=== PATIENT | female | born 1940 | race Caucasian/White ===

== ENCOUNTER 2017-07-08 08:52 | Day surgery (SDC) | payer MEDICARE, BC ==
[2017-07-08] MEDS ORDERED: Dexamethasone 4 MG/ML SDV IV ONE (08:53)
[2017-07-08] MEDS ORDERED: Midazolam 1 MG/ML 2 ML SDV IV ONE (08:53)
[2017-07-08] MEDS ORDERED: Cataract Ophth Solution EYELF ONE (09:30)
[2017-07-08] MEDS ORDERED: Sodium Chloride 0.9% 10 ML Syringe FLUSH PRN (09:30)
[2017-07-08] MEDS ORDERED: Acetaminophen 325 MG Tab PO PRN (09:30)
[2017-07-08] MEDS ORDERED: Moxifloxacin 0.5% Ophth Soln 3 ML Bottle EYELF ONE (09:30)
[2017-07-08] MEDS ORDERED: Povidone-Iodine 5% Sterile Ophth Soln 30 ML Bottle EYELF ONE ×2 (09:30→10:48)
[2017-07-08] MEDS ORDERED: Proparacaine 0.5% Ophth Soln 15 ML Bottle EYELF ONE (09:30)
[2017-07-08] MEDS ORDERED: Phenylephrine 10% Ophth Soln 5 ML Bot EYELF PRN (09:30)
[2017-07-08] MEDS ORDERED: Timolol Maleate 0.5% Ophth Soln 5 ML Bottle EYELF ONE (09:30)
[2017-07-08] MEDS ORDERED: Phenylephrine 10% Ophth Soln 5 ML Bot EYELF ONE (09:30)
[2017-07-08] MEDS ORDERED: Ondansetron 4 MG/2 ML SDV IVPUSH PRN (09:30)
--- NOTE | 2017-07-08 10:23 | PCM.SN ---
- Free Text/Narrative Note: 07/08/17 1012 preop patients history and physical reviewed along with allergies and medications no history of complications with past anesthesia heart regular rhythm history of hypertension lungs clear history of dyslipidemia hypothyroidism GERD sleep apnea npo 8 hrs asa 2 mallampati 3 plan topical with iv sedation this along with risks goals alternatives explained to patient and accepted
[2017-07-08] MEDS ORDERED: Midazolam 1 MG/ML 2 ML SDV ONE (10:27)
[2017-07-08] MEDS ORDERED: Dexamethasone 4 MG/ML SDV ONE (10:28)
[2017-07-08] MEDS ORDERED: Lidocaine 1% 30 ML SDV ONE (10:47)
[2017-07-08] MEDS ORDERED: Chondroitin Sulfate/Hyaluronate Sodium Ophth Inj 0.75 ML Syringe EYELF ONE (10:47)
[2017-07-08] MEDS ORDERED: Vancomycin 500 MG SDV EYELF ONE (10:47)
[2017-07-08] MEDS ORDERED: Tetracaine HCl/PF 0.5% 4 ML Bottle EYELF ONE (10:47)
[2017-07-08] MEDS ORDERED: Balanced Salt Solution Ophth Irrig 500 ML Bottle IOCULAR ONE (10:47)
[2017-07-08] MEDS ORDERED: Apraclonidine 0.5% Ophth Soln 5 ML Bot EYELF ONE (10:48)
[2017-07-08] MEDS ORDERED: Diclofenac Sodium 0.1% Ophth Soln 5 ML Bottle EYELF ONE (10:49)
[2017-07-08] MEDS ORDERED: Dexamethasone/Neomycin/Polymyxin B Ophth Oint 3.5 GM Tube EYELF ONE (10:49)
--- NOTE | 2017-07-08 11:18 | PCM.SN ---
- Free Text/Narrative Note: 07/08/17 1120 postop patient recovered well from iv sedation no apparent complications with anesthesia
--- NOTE | 2017-07-08 12:09 | OR ---
DATE: 07/08/2017 PREOPERATIVE DIAGNOSIS: Cataract, left eye. POSTOPERATIVE DIAGNOSIS: Cataract, left eye. PROCEDURE: Extracapsular cataract extraction with intraocular lens implant, left eye. ANESTHESIA: Topical/local MAC. COMPLICATIONS: None. INDICATION: Mrs. Lo was seen in the clinic. She has complained of difficulty reading, difficulty in crossword puzzles, and difficulty with bright lights and glare. Clinical examination reveals visually significant cataract and astigmatism. I explained options. I offered cataract surgery and I explained risks including but not limited to, infection, retinal detachment, loss of vision, need for additional surgery, and risks associated with anesthesia. We discussed implant options. She has requested a Toric implant. She is motivated to reduced dependence on spectacle correction. She understands that she may still require spectacle correction for some tasks. She voiced an understanding with respect to risks and limitations and wished to proceed. OPERATIVE DESCRIPTION: After informed consent was obtained and the risks, benefits, and alternatives were explained, the patient was brought to the operative suite and topical anesthesia was administered. The patient was then prepped and draped in the sterile fashion and attention was placed on the left eye. A sterile lid speculum was placed into the left eye to allow operative exposure. A full-thickness paracentesis was made in the temporal portion of the operative eye. Preservative-free lidocaine 0.1 mL was injected into the anterior chamber followed by viscoelastic. A full-thickness corneal incision was then made into the anterior chamber. A bent needle cystotome was used to create a small adriano in the anterior capsule. The capsulorrhexis forceps was then used to create a 360-degree curvilinear capsulorrhexis. The nucleus was then removed using a phacoemulsification handpiece and the remaining cortical material was then removed with irrigation and aspiration handpiece. Following removal of the cortical material, the capsular bag was then inspected and noted to be free of any holes or tears. Viscoelastic was then injected into the capsular bag and the intraocular lens was inserted into the capsular bag implant was oriented to summer camp counselor preoperative corneal carrington made with the patient in the upright position. The viscoelastic material was then removed from both the anterior and posterior chambers and from behind the IOL. The lens and capsular bag were then reinspected. The IOL was well centered and the capsular bag intact. The wound and paracentesis sites were inspected and hydrated with balanced saline solution. Both were found to be self-sealing. The intraocular pressure was assessed digitally and found to be within normal range. A good red reflex was noted at the completion of the procedure. No complications occurred during the operation. At the completion of the procedure, Maxitrol, Voltaren, and Iopidine drops were placed into the operative eye. A sterile eye shield was placed over the operative eye and the patient was transported to the postoperative recovery area having tolerated the procedure well. Postoperative instructions were given along with a postoperative appointment. The patient was advised to call with any questions or concerns. [facility] /[id number]
[2017-07-08 14:30] VITALS: BP 127/72
== END 2017-07-08 12:00 | disposition home or self-care (01) ==
LOC: DL.SDS 08:52
PROVIDERS: ATTEND Ophthalmology
DX: H26.9 Unspecified cataract (principal); E11.9 Type 2 diabetes mellitus without complications; E78.5 Hyperlipidemia, unspecified; I10 Essential (primary) hypertension; K21.9 Gastro-esophageal reflux disease without esophagitis; G47.30 Sleep apnea, unspecified; Z90.49 Acquired absence of other specified parts of digestive tract; Z98.890 Other specified postprocedural states
CPT/HCPCS: 00142; 66984; A9270; J3370; J7050; J1100; J2250; V2787

== ENCOUNTER 2017-07-15 08:27 | Day surgery (SDC) | payer MEDICARE, BC ==
[~2017-07-15 08:27] MED LIST: Moxifloxacin 0.5% Ophth Soln 3 ML Bottle EYERT ONE; Phenylephrine 10% Ophth Soln 5 ML Bot EYERT ONE; Povidone-Iodine 5% Sterile Ophth Soln 30 ML Bottle EYERT ONE; Proparacaine 0.5% Ophth Soln 15 ML Bottle EYERT ONE; Sodium Chloride 0.9% 10 ML Syringe FLUSH PRN; Timolol Maleate 0.5% Ophth Soln 5 ML Bottle EYERT ONE
[2017-07-15] MEDS ORDERED: Dexamethasone 4 MG/ML SDV IV ONE (08:28)
[2017-07-15] MEDS ORDERED: Sodium Chloride 0.9% 10 ML Syringe IV ONE (08:28)
[2017-07-15] MEDS ORDERED: Midazolam 1 MG/ML 2 ML SDV IV ONE (08:28)
[2017-07-15] MEDS: Dilation Soln 1 EA EACH EYERT ONE ×2 (08:52→08:53)
[2017-07-15] MEDS ORDERED: Dexamethasone 4 MG/ML SDV ONE (09:58)
[2017-07-15] MEDS ORDERED: Midazolam 1 MG/ML 2 ML SDV ONE (09:58)
[2017-07-15] MEDS ORDERED: Povidone-Iodine 5% Sterile Ophth Soln 30 ML Bottle EYERT ONE (10:08)
[2017-07-15] MEDS ORDERED: Lidocaine 1% 30 ML SDV ONE (10:08)
[2017-07-15] MEDS ORDERED: Tetracaine HCl/PF 0.5% 4 ML Bottle EYERT ONE (10:08)
[2017-07-15] MEDS ORDERED: Apraclonidine 0.5% Ophth Soln 5 ML Bot EYERT ONE (10:09)
[2017-07-15] MEDS ORDERED: Diclofenac Sodium 0.1% Ophth Soln 5 ML Bottle EYERT ONE (10:09)
[2017-07-15] MEDS ORDERED: Vancomycin 500 MG SDV EYERT ONE (10:09)
[2017-07-15] MEDS ORDERED: Dexamethasone/Neomycin/Polymyxin B Ophth Oint 3.5 GM Tube EYERT ONE (10:09)
[2017-07-15] MEDS ORDERED: Chondroitin Sulfate/Hyaluronate Sodium Ophth Inj 0.75 ML Syringe EYERT ONE (10:10)
[2017-07-15] MEDS ORDERED: Balanced Salt Solution Ophth Irrig 500 ML Bottle IOCULAR ONE (10:10)
[2017-07-15 11:09] VITALS: BP 178/74
--- NOTE | 2017-07-15 11:12 | OR ---
DATE: 07/15/2017 PREOPERATIVE DIAGNOSIS: Cataract, right eye. POSTOPERATIVE DIAGNOSIS: Cataract, right eye. PROCEDURE: Extracapsular cataract extraction with intraocular lens implant, right eye. ANESTHESIA: Topical/local MAC. COMPLICATIONS: None. INDICATION: Mrs. Lo was seen in the clinic. She has complained of a slow progressive decrease in vision. Clinical examination reveals visually significant cataract and astigmatism. I offered cataract surgery and I explained risks including but not limited to, infection, retinal detachment, loss of vision, need for additional surgery, and risks associated with anesthesia. We discussed implant options. She has requested a toric implant. She understands that she may require glasses for some activities following surgery. She voiced an understanding with respect to risks including the potential for vision loss and wished to proceed. OPERATIVE DESCRIPTION: After informed consent was obtained and the risks, benefits, and alternatives were explained, the patient was brought to the operative suite and topical anesthesia was administered. The patient was then prepped and draped in the sterile fashion and attention was placed on the right eye. A sterile lid speculum was placed into the right eye to allow operative exposure. A full-thickness paracentesis was made in the temporal portion of the operative eye. Preservative-free lidocaine 0.1 mL was injected into the anterior chamber followed by viscoelastic. A full-thickness corneal incision was then made into the anterior chamber. A bent needle cystotome was used to create a small adriano in the anterior capsule. The capsulorrhexis forceps was then used to create a 360-degree curvilinear capsulorrhexis. The nucleus was then removed using a phacoemulsification handpiece and the remaining cortical material was then removed with irrigation and aspiration handpiece. Following removal of the cortical material, the capsular bag was then inspected and noted to be free of any holes or tears. Viscoelastic was then injected into the capsular bag and the intraocular lens was inserted into the capsular bag. The implant was oriented to correspond with preoperative corneal carrington made with the patient in the upright position. The viscoelastic material was then removed from both the anterior and posterior chambers and from behind the IOL. The lens and capsular bag were then reinspected. The IOL was well centered and the capsular bag intact. The wound and paracentesis sites were inspected and hydrated with balanced saline solution. Both were found to be self-sealing. The intraocular pressure was assessed digitally and found to be within normal range. A good red reflex was noted at the completion of the procedure. No complications occurred during the operation. At the completion of the procedure, Maxitrol, Voltaren, and Iopidine drops were placed into the operative eye. A sterile eye shield was placed over the operative eye and the patient was transported to the postoperative recovery area having tolerated the procedure well. Postoperative instructions were given along with a postoperative appointment. The patient was advised to call with any questions or concerns. No complications occurred. [facility] /[id number]
== END 2017-07-15 11:20 | disposition home or self-care (01) ==
LOC: DL.SDS 08:27
PROVIDERS: ATTEND Ophthalmology
DX: H26.9 Unspecified cataract (principal); I10 Essential (primary) hypertension; G47.30 Sleep apnea, unspecified; F32.9 Major depressive disorder, single episode, unspecified; E78.5 Hyperlipidemia, unspecified; K21.9 Gastro-esophageal reflux disease without esophagitis; E11.9 Type 2 diabetes mellitus without complications; E66.9 Obesity, unspecified; Z88.8 Allergy status to other drugs, medicaments and biological substances; Z90.49 Acquired absence of other specified parts of digestive tract; Z98.890 Other specified postprocedural states; Z79.899 Other long term (current) drug therapy; Z68.26 Body mass index [BMI] 26.0-26.9, adult
CPT/HCPCS: 66984; A9270; J1100; J2250; J3370; J7050; V2787; 00142

== ENCOUNTER 2018-05-07 09:54 | Emergency (ER) | payer MEDICARE, BC ==
[2018-05-07] MEDS ORDERED: Ondansetron 4 MG/2 ML SDV IV ONE (10:34)
--- NOTE | 2018-05-07 10:40 | EDM.PDOC ---
ED HPI GENERAL MEDICAL PROBLEM - General Chief Complaint: Gastrointestinal Problem Stated Complaint: FLU LIKE SYMPTOMS [id number] Time Seen by Provider: 05/07/18 10:25 Source of Information: Reports: Patient History Limitations: Reports: No Limitations - History of Present Illness INITIAL COMMENTS - FREE TEXT/NARRATIVE: This 77 yo female patient reports to the ED with a 4 day history of nausea/ vomiting/diarrhea. The patient reports she has been attempting to drink small amounts of food and fluid, but after eating or drinking the patient gets nauseated and vomits. The patient reports she has take a dose of Imodium daily, but continues to have diarrhea. The patient reports that she called the [facility] yesterday and was advised to come to the ED. The patient reports some abdominal cramping when she needs to have a bowel movement. Onset Date: 05/03/18 Duration: Constant, Getting Worse Location: Reports: Abdomen, Other Quality: Reports: Other (cramping) Severity: Moderate Improves with: Reports: None Worsens with: Reports: None Context: Reports: Other Associated Symptoms: Reports: Nausea/Vomiting, Weakness (generalized ), Other ( diarrhea) Treatments CLEAN ENERGY POLICY ANALYST: Reports: Other Medication(s) (Imodium) Abdomen Pain Score (Numeric/FACES): 5 - Related Data Allergies Allergy/AdvReac Type Severity Reaction Status Date / Time pseudoephedrine Allergy Tachycardia Verified 07/15/17 08:37 Home Meds: Home Meds Aspirin [Halfprin] 81 mg PO DAILY 07/07/17 [History] Atenolol [Tenormin] 50 mg PO DAILY 07/07/17 [History] Calcium Carbonate/Vitamin D3 [Calcium 600 + Vit D Tablet] 1 each PO BID [History] Citalopram Hydrobromide [Celexa] 20 mg PO DAILY 07/07/17 [History] Enalapril Maleate [Vasotec] 20 mg PO BID 07/07/17 [History] Glimepiride [Amaryl] 1 mg PO BID 07/07/17 [History] Hydrochlorothiazide 25 mg PO DAILY 07/07/17 [History] Isosorbide Mononitrate [Imdur] 90 mg PO DAILY 07/07/17 [History] Levothyroxine [Synthroid] 50 mcg PO ACBREAKFAST 07/07/17 [History] Multivit-Min/FA/Lycopene/Lut [Centrum Silver Tablet] 1 each PO DAILY 07/07/17 [ History] Oxybutynin Chloride [Ditropan Xl] 10 mg PO DAILY 07/07/17 [History] atorvaSTATin [Lipitor] 40 mg PO BEDTIME 07/07/17 [History] metFORMIN HCl [Metformin HCl] 1,000 mg PO BID 07/07/17 [History] levETIRAcetam [Keppra] 500 mg PO BID 05/07/18 [History] Past Medical History HEENT History: Reports: Cataract, Impaired Vision Cardiovascular History: Reports: High Cholesterol, Hypertension, Other (See Below) Other Cardiovascular History: CARDIAC STRESS TEST; PALPITATIONS Respiratory History: Reports: Sleep Apnea Gastrointestinal History: Reports: GERD 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 History: Reports: Other (See Below) Other 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 History: 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: Reports: , Spontaneous Musculoskeletal History: Reports: Arthritis Neurological History: Reports: None, Seizure Psychiatric History: Reports: Depression Endocrine/Metabolic History: Reports: Diabetes, Type II, Other (See Below) Other Endocrine/Metabolic History: METABOLIC SYNDROME Hematologic History: Reports: None Immunologic History: Reports: None Oncologic (Cancer) History: Reports: None Dermatologic History: Reports: Psoriasis - Infectious Disease History Infectious Disease History: Reports: Chicken Pox, Measles - Past Surgical History Head Surgeries/Procedures: Reports: None HEENT Surgical History: Reports: Cataract Surgery Cardiovascular Surgical History: Reports: Other (See Below) Other Cardiovascular Surgeries/Procedures: DOPPLER ECHOCARDIOGRAPHY Respiratory Surgical History: Reports: None GI Surgical History: Reports: Appendectomy, Cholecystectomy, Colonoscopy, EGD Female Surgical History: Reports: Breast Biopsy Endocrine Surgical History: Reports: None Neurological Surgical History: Reports: None Musculoskeletal Surgical History: Reports: None Oncologic Surgical History: Reports: Biopsy of Breast, Lumpectomy, Other (See Below) Other Oncologic Surgeries/Procedures: RIGHT BREAST Social & Family History - Family History Family Medical History: Noncontributory - Tobacco Use Smoking Status *Q: Never Smoker - Caffeine Use Caffeine Use: Reports: Coffee, Soda, Tea - Recreational Drug Use Recreational Drug Use: No ED ROS GENERAL - Review of Systems Review Of Systems: ROS reveals no pertinent complaints other than HPI. ED EXAM, GI/ABD - Physical Exam Exam: See Below Exam Limited By: No Limitations General Appearance: Alert, WD/WN, Mild Distress Eyes: Bilateral: Normal Appearance, EOMI Ears: Normal External Exam, Normal Canal, Hearing Grossly Normal, Normal TMs Nose: Normal Inspection, Normal Mucosa, No Blood Throat/Mouth: Normal Inspection, Normal Lips, Normal Teeth, Normal Gums, Normal Oropharynx, Normal Voice, No Airway Compromise Head: Atraumatic, Normocephalic Neck: Normal Inspection, Supple, Non-Tender, Full Range of Motion Respiratory/Chest: No Respiratory Distress, Lungs Clear, Normal Breath Sounds, No Accessory Muscle Use, Chest Non-Tender Cardiovascular: Normal Peripheral Pulses, Regular Rate, Rhythm, No Edema, No Gallop, No JVD, No Murmur, No Rub GI/Abdominal Exam: Normal Bowel Sounds, Soft, No Organomegaly, No Distention, No Abnormal Bruit, No Mass, Pelvis Stable, Tender (mild diffuse tenderness) (Female) Exam: Deferred Rectal (Female) Exam: Deferred Extremities: Normal Inspection, Normal Range of Motion, Non-Tender, Normal Capillary Refill, No Pedal Edema Neurological: Alert, Oriented, CN II-XII Intact, Normal Cognition, Normal Gait Psychiatric: Normal Affect, Normal Mood Skin Exam: Warm, Dry, Intact, Normal Color, No Rash Lymphatic: No Adenopathy Course - Vital Signs Last Recorded V/S: Last Vital Signs Temp 36.3 C 05/07/18 12:15 Pulse 65 05/07/18 12:15 Resp 17 05/07/18 12:15 BP 130/56 L 05/07/18 12:15 Pulse Ox 99 05/07/18 12:15 - Orders/Labs/Meds Orders: Active Orders 24 hr Category Date Time Status UA W/MICROSCOPIC [URIN] Stat Lab 05/07/18 13:44 Ordered Sodium Chloride 0.9% [Normal Saline] 1,000 ml Med 05/07/18 10:45 Active IV ASDIRECTED Sodium Chloride 0.9% [Normal Saline] 1,000 ml Med 05/07/18 12:45 Active IV ASDIRECTED Medication Orders Sodium Chloride (Normal Saline) 1,000 mls @ 999 mls/hr IV ASDIRECTED DOREEN Last Admin: 05/07/18 10:49 Dose: 999 mls/hr Sodium Chloride (Normal Saline) 1,000 mls @ 999 mls/hr IV ASDIRECTED DOREEN Last Admin: 07/20/18 12:36 Dose: 999 mls/hr Labs: Laboratory Tests 05/07/18 05/07/18 05/07/18 Range/Units 10:40 10:40 10:40 WBC 4.5 L (5.0-10.0) 10^3/uL RBC 4.09 L (4.2-5.4) 10^6/uL Hgb 11.7 L (12.0-16.0) g/dL Hct 34.8 L (37.0-47.0) % MCV 85.1 (80-100) fL MCH 28.6 (27.0-34.0) pg MCHC 33.6 (33.0-35.0) g/dL Plt Count 197 (150-450) 10^3/uL Neut % (Auto) 49.4 (42.2-75.2) % Lymph % (Auto) 21.2 (20.5-50.1) % [place] % (Auto) 19.9 H (2-8) % Eos % (Auto) 9.1 H (1.0-3.0) % Baso % (Auto) 0.4 (0.0-1.0) % Sodium 128 L (135-145) mmol/L Potassium 2.9 L (3.6-5.0) mmol/L Chloride 94 L (101-111) mmol/L Carbon Dioxide 18.0 L (21.0-31.0) mmol/L Anion Gap 18.9 BUN 58 H (7-18) mg/dL Creatinine 2.1 H (0.6-1.3) mg/dL Est Cr Clr Drug Dosing 23.35 mL/min Estimated GFR (MDRD) 23 BUN/Creatinine Ratio 27.61 Glucose 147 H (74-105) mg/dL Calcium 8.9 (8.4-10.2) mg/dl Magnesium 1.5 L (1.8-2.5) mg/dL Total Bilirubin 0.9 (0.2-1.0) mg/dL AST 21 (10-42) IU/L ALT 18 (10-60) IU/L Alkaline Phosphatase 41 L (42-121) IU/L Total Protein 7.8 (6.7-8.2) g/dl Albumin 4.1 (3.2-5.5) g/dl Globulin 3.7 Albumin/Globulin Ratio 1.11 Amylase 25 L (28-100) U/L Lipase 28 (22-51) U/L Urine Color (YELLOW) Urine Appearance (CLEAR) Urine pH (5.0-9.0) Ur Specific [place] (1.005-1.030) Urine Protein (NEGATIVE) Urine Glucose (UA) (NEGATIVE) Urine Ketones (NEGATIVE) Urine Occult Blood (NEGATIVE) Urine Nitrite (NEGATIVE) Urine Bilirubin (NEGATIVE) Urine Urobilinogen (0.2-1.0) mg/dL Ur Leukocyte Esterase (NEGATIVE) Urine RBC /HPF Urine WBC (0-5/HPF) /HPF Ur Epithelial Cells /HPF Urine Bacteria (0-FEW/HPF) /HPF 05/07/18 Range/Units 13:44 WBC (5.0-10.0) 10^3/uL RBC (4.2-5.4) 10^6/uL Hgb (12.0-16.0) g/dL Hct (37.0-47.0) % MCV (80-100) fL MCH (27.0-34.0) pg MCHC (33.0-35.0) g/dL Plt Count (150-450) 10^3/uL Neut % (Auto) (42.2-75.2) % Lymph % (Auto) (20.5-50.1) % [place] % (Auto) (2-8) % Eos % (Auto) (1.0-3.0) % Baso % (Auto) (0.0-1.0) % Sodium (135-145) mmol/L Potassium (3.6-5.0) mmol/L Chloride (101-111) mmol/L Carbon Dioxide (21.0-31.0) mmol/L Anion Gap BUN (7-18) mg/dL Creatinine (0.6-1.3) mg/dL Est Cr Clr Drug Dosing mL/min Estimated GFR (MDRD) BUN/Creatinine Ratio Glucose (74-105) mg/dL Calcium (8.4-10.2) mg/dl Magnesium (1.8-2.5) mg/dL Total Bilirubin (0.2-1.0) mg/dL AST (10-42) IU/L ALT (10-60) IU/L Alkaline Phosphatase (42-121) IU/L Total Protein (6.7-8.2) g/dl Albumin (3.2-5.5) g/dl Globulin Albumin/Globulin Ratio Amylase (28-100) U/L Lipase (22-51) U/L Urine Color Yellow (YELLOW) Urine Appearance Clear (CLEAR) Urine pH 5.0 (5.0-9.0) Ur Specific [place] 1.010 (1.005-1.030) Urine Protein Negative (NEGATIVE) Urine Glucose (UA) Negative (NEGATIVE) Urine Ketones Negative (NEGATIVE) Urine Occult Blood Small H (NEGATIVE) Urine Nitrite Positive H (NEGATIVE) Urine Bilirubin Negative (NEGATIVE) Urine Urobilinogen 0.2 (0.2-1.0) mg/dL Ur Leukocyte Esterase Negative (NEGATIVE) Urine RBC 0-5 /HPF Urine WBC 0-5 (0-5/HPF) /HPF Ur Epithelial Cells Occasional /HPF Urine Bacteria Many H (0-FEW/HPF) /HPF Meds: Medications Generic Name Dose Route Start Last Admin Trade Name Freq PRN Reason Stop Dose Admin Sodium Chloride 1,000 mls @ 999 mls/hr 05/07/18 10:45 05/07/18 10:49 Normal Saline IV 999 mls/hr ASDIRECTED DOREEN Administration Sodium Chloride 1,000 mls @ 999 mls/hr 05/07/18 12:45 05/07/18 12:36 Normal Saline IV 999 mls/hr ASDIRECTED DOREEN Administration Discontinued Medications Generic Name Dose Route Start Last Admin Trade Name Freq PRN Reason Stop Dose Admin Potassium Chloride 10 meq/ 100 mls @ 100 mls/hr 05/07/18 11:20 05/07/18 11:30 Premix IV 05/07/18 12:19 100 mls/hr ONETIME ONE Administration Ondansetron HCl 4 mg 05/07/18 10:34 05/07/18 10:45 Zofran IV 05/07/18 10:35 4 mg ONETIME ONE Administration Departure - Departure Time of Disposition: 14:14 Disposition: Home, Self-Care 01 Condition: Fair Clinical Impression: Viral gastroenteritis - Discharge Information *PRESCRIPTION DRUG MONITORING PROGRAM REVIEWED*: Not Applicable *COPY OF PRESCRIPTION DRUG MONITORING REPORT IN PATIENT PRAVEEN: Not Applicable Instructions: Viral Gastroenteritis, Adult, Dehydration, Adult, [id number] Referrals: Yaima Marmolejo PA [Primary Care Provider] - Forms: ED Department Discharge Care Plan Goals: The patient was advised of the examination and lab results during the visit. The patient was given IV fluids and IV Potassium while in the ED. The patient was discharged with a script for Zofran ODT (4 mg) #20 to take 1 by mouth every 6 hours as needed for nausea. The patient was encouraged to stick to a BRAT diet (bananas, rice, applesauce and toast) over the next 48 hours with small frequent sips of fluid. If the patient has any additional symptoms or concerns, the patient should follow-up with her primary care facility or return to the emergency department. - My Orders Last 24 Hours: My Active Orders 05/07/18 10:45 Sodium Chloride 0.9% [Normal Saline] 1,000 ml IV ASDIRECTED 05/07/18 12:45 Sodium Chloride 0.9% [Normal Saline] 1,000 ml IV ASDIRECTED 05/07/18 13:44 UA W/MICROSCOPIC [URIN] Stat - Assessment/Plan Last 24 Hours: My Active Orders 05/07/18 10:45 Sodium Chloride 0.9% [Normal Saline] 1,000 ml IV ASDIRECTED 05/07/18 12:45 Sodium Chloride 0.9% [Normal Saline] 1,000 ml IV ASDIRECTED 05/07/18 13:44 UA W/MICROSCOPIC [URIN] Stat
[2018-05-07] MEDS ORDERED: Sodium Chloride 0.9% 1,000 ML IV SCH ×2 (10:45→12:45)
[2018-05-07 11:07] LABS: ANION GAP 18.9
[2018-05-07] MEDS ORDERED: Potassium Chloride 10 MEQ in Premix Bag 1 BAG IV ONE (11:20)
[2018-05-07 12:16] VITALS: BP 130/56
== END 2018-05-07 14:23 | disposition home or self-care (01) ==
LOC: DL.ED 09:54
DX: A08.4 Viral intestinal infection, unspecified (principal); E78.00 Pure hypercholesterolemia, unspecified; I10 Essential (primary) hypertension; K21.9 Gastro-esophageal reflux disease without esophagitis; E11.9 Type 2 diabetes mellitus without complications; F32.9 Major depressive disorder, single episode, unspecified; Z88.8 Allergy status to other drugs, medicaments and biological substances; Z79.899 Other long term (current) drug therapy; Z79.84 Long term (current) use of oral hypoglycemic drugs
CPT/HCPCS: 36415; 80053; 81001; 82150; 83690; 83735; 85025; 96361; 96365; 96375; 99284; J2405; J3480; J7030

== ENCOUNTER 2019-02-26 08:14 | Emergency (ER) | payer MEDICARE, BC ==
[2019-02-26 08:36] VITALS: BP 118/62
--- NOTE | 2019-02-26 08:44 | EDM.PDOC ---
ED HPI GENERAL MEDICAL PROBLEM - General Chief Complaint: Respiratory Problem Stated Complaint: HARD TIME BREATHING Time Seen by Provider: 02/26/19 08:40 Source of Information: Reports: Patient, Old Records, RN, RN Notes Reviewed History Limitations: Reports: No Limitations - History of Present Illness INITIAL COMMENTS - FREE TEXT/NARRATIVE: Pt arrives to ER from home by POV with c/o feeling dizzy, ears hurting, coughing , and head congestion for the past 12 days. Pt believes the "infection" is starting to settle into her chest. She went to see Yaima Price NP and was put on Augmentin. She states that she did not feel better after the coarse of Augmentin and was the prescribed Levaquin 3 days ago. Pt is somewhat frustrated that no tests or x-rays were ordered when she was in clinic. Now she states she has new generalized aching all over and is here for further evaluation. She has been taking Meclizine and going to PT for tx of vertigo, and feels it is helping. She denies fever, productive cough, shortness of breath, or sore throat. No known sick contacts. She recently returned home after spending three months in [place], during that time she did travel into [place], approx. 2-3 months ago. Duration: Week(s): (2-3), Constant Location: Reports: Head, Face, Chest Quality: Reports: Pressure Severity: Moderate Improves with: Reports: None Worsens with: Reports: None Associated Symptoms: Reports: No Other Symptoms - Related Data Allergies Allergy/AdvReac Type Severity Reaction Status Date / Time pseudoephedrine Allergy Tachycardia Verified 07/15/17 08:37 Home Meds: Home Meds Aspirin [Halfprin] 81 mg PO DAILY 07/07/17 [History] Atenolol [Tenormin] 50 mg PO DAILY 07/07/17 [History] Calcium Carbonate/Vitamin D3 [Calcium 600 + Vit D Tablet] 1 each PO BID [History] Citalopram Hydrobromide [Celexa] 20 mg PO DAILY 07/07/17 [History] Enalapril Maleate [Vasotec] 20 mg PO BID 07/07/17 [History] Glimepiride [Amaryl] 1 mg PO BID 07/07/17 [History] Hydrochlorothiazide 25 mg PO DAILY 07/07/17 [History] Isosorbide Mononitrate [Imdur] 90 mg PO DAILY 07/07/17 [History] Levothyroxine [Synthroid] 50 mcg PO ACBREAKFAST 07/07/17 [History] Multivit-Min/FA/Lycopene/Lut [Centrum Silver Tablet] 1 each PO DAILY 07/07/17 [ History] Oxybutynin Chloride [Ditropan Xl] 10 mg PO DAILY 07/07/17 [History] atorvaSTATin [Lipitor] 40 mg PO BEDTIME 07/07/17 [History] metFORMIN HCl [Metformin HCl] 1,000 mg PO BID 07/07/17 [History] Past Medical History HEENT History: Reports: Cataract, Impaired Vision, Sinusitis Cardiovascular History: Reports: High Cholesterol, Hypertension, Other (See Below) Other Cardiovascular History: CARDIAC STRESS TEST; PALPITATIONS Respiratory History: Reports: Sleep Apnea Gastrointestinal History: Reports: GERD 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 History: Reports: Other (See Below) Other 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: , Spontaneous Musculoskeletal History: Reports: Arthritis Neurological History: Reports: None, Seizure, Vertigo Psychiatric History: Reports: Depression Endocrine/Metabolic History: Reports: Diabetes, Type II, Other (See Below) Other Endocrine/Metabolic History: METABOLIC SYNDROME Hematologic History: Reports: None Immunologic History: Reports: None Oncologic (Cancer) History: Reports: None Dermatologic History: Reports: Psoriasis - Infectious Disease History Infectious Disease History: Reports: Chicken Pox, Measles - Past Surgical History Head Surgeries/Procedures: Reports: None HEENT Surgical History: Reports: Cataract Surgery Cardiovascular Surgical History: Reports: Other (See Below) Other Cardiovascular Surgeries/Procedures: DOPPLER ECHOCARDIOGRAPHY Respiratory Surgical History: Reports: None GI Surgical History: Reports: Appendectomy, Cholecystectomy, Colonoscopy, EGD Female Surgical History: Reports: Breast Biopsy Endocrine Surgical History: Reports: None Neurological Surgical History: Reports: None Musculoskeletal Surgical History: Reports: None Oncologic Surgical History: Reports: Biopsy of Breast, Lumpectomy, Other (See Below) Other Oncologic Surgeries/Procedures: RIGHT BREAST Social & Family History - Family History Family Medical History: Noncontributory - Caffeine Use Caffeine Use: Reports: Coffee, Soda, Tea - Living Situation & Occupation Living situation: Reports: Occupation: Retired ED ROS GENERAL - Review of Systems Review Of Systems: ROS reveals no pertinent complaints other than HPI. ED EXAM, GENERAL - Physical Exam Exam: See Below Exam Limited By: No Limitations General Appearance: Alert, WD/WN, No Apparent Distress Eye Exam: Bilateral Eye: EOMI, Normal Inspection, PERRL Ears: Normal External Exam, Normal Canal, Hearing Grossly Normal, Normal TMs Nose: No Blood, Other (Inflammed/edematous turbinates). No: Clear Rhinorrhea Throat/Mouth: Normal Inspection, Normal Lips, Normal Teeth, Normal Gums, Normal Oropharynx, Normal Voice, No Airway Compromise Head: Atraumatic, Normocephalic Neck: Normal Inspection, Supple, Non-Tender, Full Range of Motion. No: Lymphadenopathy (L), Lymphadenopathy (R) Respiratory/Chest: No Respiratory Distress, No Accessory Muscle Use, Chest Non- Tender, Crackles (Bibasilar). No: Rales, Rhonchi, Wheezing Cardiovascular: Regular Rate, Rhythm, No Edema GI/Abdominal: Normal Bowel Sounds, Soft, Non-Tender Back Exam: Normal Inspection Extremities: Normal Inspection, Normal Range of Motion, Non-Tender, Normal Capillary Refill, No Pedal Edema Neurological: Alert, Oriented, CN II-XII Intact, Normal Cognition, Normal Gait, No Motor/Sensory Deficits Psychiatric: Normal Affect, Normal Mood Skin Exam: Warm, Dry, Intact, Normal Color, No Rash Course - Vital Signs Last Recorded V/S: Last Vital Signs Temp 36.8 C 02/26/19 08:18 Pulse 68 02/26/19 08:18 Resp 18 02/26/19 08:18 BP 118/62 02/26/19 08:18 Pulse Ox 95 02/26/19 08:18 - Orders/Labs/Meds Orders: Active Orders 24 hr Category Date Time Status Chest 2V [CR] Stat Exams 02/26/19 08:37 Taken Sinus Comp Min 3V [CR] Urgent Exams 02/26/19 08:38 Taken Labs: Laboratory Tests 02/26/19 02/26/19 02/26/19 Range/Units 08:40 08:40 08:58 WBC 11.0 H (5.0-10.0) 10^3/uL RBC 3.97 L (4.2-5.4) 10^6/uL Hgb 11.4 L (12.0-16.0) g/dL Hct 34.4 L (37.0-47.0) % MCV 86.6 (80-100) fL MCH 28.7 (27.0-34.0) pg MCHC 33.1 (33.0-35.0) g/dL Plt Count 212 (150-450) 10^3/uL Neut % (Auto) 73.5 (42.2-75.2) % Lymph % (Auto) 12.6 L (20.5-50.1) % [place] % (Auto) 11.9 H (2-8) % Eos % (Auto) 1.8 (1.0-3.0) % Baso % (Auto) 0.2 (0.0-1.0) % Sodium 132 L (135-145) mmol/L Potassium 3.6 (3.6-5.0) mmol/L Chloride 94 L (101-111) mmol/L Carbon Dioxide 22.0 (21.0-31.0) mmol/L Anion Gap 19.6 BUN 22 H D (7-18) mg/dL Creatinine 0.9 D (0.6-1.3) mg/dL Est Cr Clr Drug Dosing 53.64 mL/min Estimated GFR (MDRD) > 60 BUN/Creatinine Ratio 24.44 Glucose 171 H (74-105) mg/dL Calcium 9.0 (8.4-10.2) mg/dl Total Bilirubin 1.2 H (0.2-1.0) mg/dL AST 24 (10-42) IU/L ALT 16 (10-60) IU/L Alkaline Phosphatase 44 (42-121) IU/L Total Protein 7.5 (6.7-8.2) g/dl Albumin 3.7 (3.2-5.5) g/dl Globulin 3.8 Albumin/Globulin Ratio 0.97 Urine Color Yellow (YELLOW) Urine Appearance Clear (CLEAR) Urine pH 5.5 (5.0-9.0) Ur Specific [place] 1.015 (1.005-1.030) Urine Protein Negative (NEGATIVE) Urine Glucose (UA) Negative (NEGATIVE) Urine Ketones Negative (NEGATIVE) Urine Occult Blood Moderate H (NEGATIVE) Urine Nitrite Negative (NEGATIVE) Urine Bilirubin Negative (NEGATIVE) Urine Urobilinogen 0.2 (0.2-1.0) mg/dL Ur Leukocyte Esterase Negative (NEGATIVE) Urine RBC 0-5 /HPF Urine WBC 0-5 (0-5/HPF) /HPF Ur Epithelial Cells Few /HPF Urine Bacteria Few (0-FEW/HPF) /HPF Influenza A/B: negative. - Radiology Interpretation Free Text/Narrative:: [facility] Final Radiology Report Call: [phone] assistance Online chat: [email or web address] Name: SHELDON WILSON Age: 78Years F Date: 02/26/2019 SSN: -- : [id number] Study: XR CHEST 2 VIEWS FRONTAL & LAT Requesting Physician: CHASE STEPHENSON Images: 2 Addl Studies: Provided Clinical History: Contrast: Contrast Medium: Contrast Amount: Contrast Method: CONFIDENTIALITY STATEMENT This report is intended only for use by the referring physician, and only in accordance with law. If you received this in error, call [phone]. Page 1 of 1 EXAM: XR Chest, 2 Views EXAM DATE/TIME: 02/26/2019 8:58 AM CLINICAL HISTORY: 78 years old, female; Cough; Congestion TECHNIQUE: Imaging protocol: XR of the chest, 2 views. COMPARISON: CR CHEST PA/LAT 08/23/2012 4:50 PM FINDINGS: Lungs: Poor inspiration with decreased lung volumes. No focal peripheral lung consolidation, air bronchogram formation, or silhouette sign. Minimal left basilar atelectasis. Pleural space: No pleural effusion or pneumothorax. Heart/Mediastinum: The heart is not enlarged. There is a left epicardial fat pad. The mediastinal contours are normal. Bones/joints: Multilevel disc degeneration present in the thoracic spine. IMPRESSION: No pneumonia. Thank you for allowing us to participate in the care of your patient. Dictated and Authenticated by: Ascencion Raymundo MD 02/26/2019 10:26 AM Central Time ([place] & [place]) [facility] Final Radiology Report Call: [phone] assistance Online chat: [email or web address] Name: SHELDON WILSON Age: 78Years F Date: 02/26/2019 SSN: -- : 1940 Study: XR SINUS/PARANASAL COMPLETE MIN OF 3 VIEWS Requesting Physician: CHASE STEPHENSON Images: 3 Addl Studies: Provided Clinical History: Contrast: Contrast Medium: Contrast Amount: Contrast Method: CONFIDENTIALITY STATEMENT This report is intended only for use by the referring physician, and only in accordance with law. If you received this in error, call [phone]. Page 1 of 1 EXAM: XR Sinus, Minimum of 3 Views, Complete EXAM DATE/TIME: 02/26/2019 9:06 AM CLINICAL HISTORY: 78 years old, female; Pain and signs and symptoms; Other: Vertigo, sinus pain/ pressure; Face pain TECHNIQUE: Imaging protocol: XR of the sinuses and paranasal structures, minimum of 3 views. Complete exam. COMPARISON: No relevant prior studies available. FINDINGS: Orbits: No intraorbital emphysema. Sinuses: There is mucoperiosteal thickening in both maxillary antra. Possible fluid in the maxillary antra as well. Bones/joints: No fracture. Soft tissues: Unremarkable. IMPRESSION: Bilateral chronic maxillary sinusitis, possibly with an acute component as well. Thank you for allowing us to participate in the care of your patient. Dictated and Authenticated by: Ascencion Raymundo MD 02/26/2019 10:29 AM Central Time ([place] & [place]) Departure - Departure Time of Disposition: 10:20 Disposition: Home, Self-Care 01 Condition: Good Clinical Impression: Vertigo, Mild dehydration Sinusitis Qualifiers: Sinusitis location: maxillary Chronicity: chronic Qualified Code(s): J32.0 - Chronic maxillary sinusitis - Discharge Information *PRESCRIPTION DRUG MONITORING PROGRAM REVIEWED*: No *COPY OF PRESCRIPTION DRUG MONITORING REPORT IN PATIENT PRAVEEN: No Instructions: Vertigo, Dehydration, Elderly, [id number], Sinusitis, Adult Forms: ED Department Discharge Additional Instructions: Rx: Dexamethasone 4mg Continue the Levaquin and Meclizine as prescribed. Drink plenty of water. Follow up in clinic this week for a referral to an Ear/Nose/Throat specialist. - My Orders Last 24 Hours: My Active Orders 02/26/19 08:37 Chest 2V [CR] Stat 02/26/19 08:38 Sinus Comp Min 3V [CR] Urgent - Assessment/Plan Last 24 Hours: My Active Orders 02/26/19 08:37 Chest 2V [CR] Stat 02/26/19 08:38 Sinus Comp Min 3V [CR] Urgent
[2019-02-26 09:10] LABS: ANION GAP 19.6; CHLORIDE,CL 94 mmol/L (101-111); SODIUM,NA 132 mmol/L (135-145)
== END 2019-02-26 10:40 | disposition home or self-care (01) ==
LOC: DL.ED 08:14
DX: E86.0 Dehydration (principal); R42 Dizziness and giddiness; J32.0 Chronic maxillary sinusitis; E78.00 Pure hypercholesterolemia, unspecified; I10 Essential (primary) hypertension; E11.9 Type 2 diabetes mellitus without complications; K21.9 Gastro-esophageal reflux disease without esophagitis; F32.9 Major depressive disorder, single episode, unspecified; Z88.8 Allergy status to other drugs, medicaments and biological substances; Z79.82 Long term (current) use of aspirin; Z79.899 Other long term (current) drug therapy; Z79.84 Long term (current) use of oral hypoglycemic drugs
CPT/HCPCS: 36415; 71046; 80053; 81001; 85025; 87804; 99283-25